=== PATIENT | male | born 2000 | race Caucasian/White ===

== ENCOUNTER 2021-09-11 19:17 | Emergency (ER) | payer MEDICAID ==
[~2021-09-11] VITALS: Ht 177.8 cm; Wt 67.8 kg
[2021-09-12] MEDS ORDERED: GLUCAGON,HUMAN RECOMBINANT 1MG/VIAL IM ONE (00:30)
[2021-09-12 02:05] VITALS: BP 118/76
== END 2021-09-12 02:07 | disposition home or self-care (01) ==
LOC: ER 19:17
DX: R09.89 Other specified symptoms and signs involving the circulatory and respiratory systems (principal)
CPT/HCPCS: 70360; 71045; 96372; 99284; J1610